=== PATIENT | male | born 1955 | race African-American/Black ===

== ENCOUNTER 2018-12-07 13:06 | Emergency (ER) | payer MEDICARE, OTHER ==
[~2018-12-07] VITALS: Ht 175.3 cm; Wt 90.0 kg
[2018-12-07] MEDS ORDERED: CARV3.1242 PO (13:17)
[2018-12-07] MEDS ORDERED: ASPI-986 PO (13:17)
[2018-12-07] MEDS ORDERED: GLYB1.253 PO (13:17)
[2018-12-07] MEDS ORDERED: METF-816 PO (13:17)
[2018-12-07] MEDS ORDERED: VERA100C4 PO (13:17)
[2018-12-07] MEDS ORDERED: ONDANSETRON HCL 4MG/2ML INJ IV STA (13:24)
[2018-12-07 13:40] LABS: EOSINOPHILS % 2.6 % (0.0-5.0); HEMATOCRIT. 39.3 % (42.0-52.0); HEMOGLOBIN. 13.4 g/dL (14.0-18.0); LYMPHOCYTES % 20.5 % (20.0-50.0); MEAN PLATELET VOLUME 8.3 fl (7.4-10.4); MONOCYTES % 6.8 % (2.0-8.0); NEUTROPHILS % 69.1 % (40.0-76.0); PLATELET 246 x1000/uL (130-400); RED BLOOD CELL COUNT 4.32 mill/uL (4.7-6.1); RED CELL DISTRIBUTION WIDTH 13.1 % (11.6-14.6)
[2018-12-07 13:46] LABS: CHLORIDE 107 mEq/L (98-107)
[2018-12-07 15:53] VITALS: BP 101/83
== END 2018-12-07 15:57 | disposition home or self-care (01) ==
LOC: ER 13:06
DX: R42 Dizziness and giddiness (principal); T46.1X5A Adverse effect of calcium-channel blockers, initial encounter; T44.7X5A Adverse effect of beta-adrenoreceptor antagonists, initial encounter; R00.1 Bradycardia, unspecified; E11.65 Type 2 diabetes mellitus with hyperglycemia; I10 Essential (primary) hypertension; Z79.82 Long term (current) use of aspirin; Y92.89 Other specified places as the place of occurrence of the external cause
CPT/HCPCS: 36415; 71045; 80053; 82962; 84484; 85025; 93005; 96374; 99284; J2405

== ENCOUNTER 2019-04-09 04:54 | Emergency (ER) | payer MEDICARE, OTHER ==
[~2019-04-09] VITALS: Ht 182.9 cm; Wt 111.0 kg
[~2019-04-09 04:54] MED LIST: ASPI-986 PO; CARV3.1242 PO; GLYB1.253 PO; METF-816 PO; VERA100C4 PO
[2019-04-09 06:02] LABS: BASOPHILS % 0.9 % (0.0-2.0); EOSINOPHILS % 2.7 % (0.0-5.0); HEMATOCRIT. 41.9 % (42.0-52.0); HEMOGLOBIN. 14.1 g/dL (14.0-18.0); MEAN CORPUSCULAR HEMOGLOBIN 30.2 pg (28.0-32.0); MEAN CORPUSCULAR VOLUME 89.5 fL (80.0-94.0); MEAN PLATELET VOLUME 8.7 fl (7.4-10.4); MONOCYTES % 6.1 % (2.0-8.0); NEUTROPHILS % 68.3 % (40.0-76.0); PLATELET 278 x1000/uL (130-400); RED BLOOD CELL COUNT 4.68 mill/uL (4.7-6.1); RED CELL DISTRIBUTION WIDTH 12.9 % (11.6-14.6)
[2019-04-09 06:10] LABS: CHLORIDE 102 mEq/L (98-107)
[2019-04-09] MEDS: KETOROLAC 30MG/ML VIAL IV STA (07:06)
[2019-04-09] MEDS: SODIUM CHLORIDE 0.9% 1,000 ML IV ONE (07:07)
[2019-04-09 08:34] LABS: CLARITY URINE CLEAR (CLEAR); COLOR URINE YELLOW (YELLOW); KETONES URINE 3+ (NEGATIVE); LEUKOCYTE ESTERASE URINE NEGATIVE (NEGATIVE); NITRITE URINE NEGATIVE (NEGATIVE); OCCULT BLOOD URINE NEGATIVE (NEGATIVE); PH URINE 6.5 (4.5-8.0); PROTEIN URINE TRACE (NEGATIVE); SPECIFIC GRAVITY URINE 1.038 (1.005-1.030); UROBILINOGEN URINE 0.2 E.U./dL (0.2-1.0)
[2019-04-09] MEDS: ONDANSETRON HCL 4MG/2ML INJ IV ONE (09:13)
[2019-04-09] MEDS: MORPHINE SULFATE 4 MG/ML CPJ (NOT FOR IM USE) IV ONE (09:18)
[2019-04-09] MEDS: ENALAPRIL 2.5MG/2ML VIAL 2ML IV ONE (09:28)
[2019-04-09] MEDS: CARVEDILOL 12.5MG TABLET PO ONE (09:29)
[2019-04-09 13:34] VITALS: BP 147/101
== END 2019-04-09 14:09 | disposition home or self-care (01) ==
LOC: ER 04:54
DX: M54.9 Dorsalgia, unspecified (principal); R35.0 Frequency of micturition; R39.15 Urgency of urination; E11.65 Type 2 diabetes mellitus with hyperglycemia; E27.9 Disorder of adrenal gland, unspecified; I10 Essential (primary) hypertension
CPT/HCPCS: 36415; 71045; 74176; 80053; 81003; 82962; 83880; 84484; 85025; 93005; 96361; 96374; 96375; 99284; J1885; J2270; J2405; J3490; J7030